=== PATIENT | male | born 1935 | race Two or more races ===

== ENCOUNTER 2024-10-01 12:23 | Inpatient (IN) | payer OTHER ==
[~2024-10-01] VITALS: Ht 175.3 cm; Wt 72.6 kg
[2024-10-01] MEDS ORDERED: MEMANTINE HCL E28 MG (13:02)
[2024-10-01] MEDS ORDERED: COZAAR50 MG (13:02)
[2024-10-01] MEDS ORDERED: RILUTEK50 MG (13:02)
[2024-10-01] MEDS ORDERED: GALANTAMINE HBR24 MG (13:03)
--- NOTE | 2024-10-01 13:03 | NUR ---
SE RECIBE PACIENTE ALERTA Y ORIENTADO X3 ACOMPANADO DE PERSONAL DE AMBULANCIA Y ESPOSA QUIEN REFIERE PACIENTE OG PRESENTADO DIFICULTAD RESPIRATORIA EN NG HOGAR DESDE HACE VARIAS SEMANAS. PACIENTE CON DX DE ALS, ALZHEIMER Y APNEA DEL SUENO. AL MOMENTO DE TRIAGE PACIENTE CON BUEN PATRON RESPIRATORIO, [place] EN ORACIONES COMPLETAS, SATURANDO 96%
[2024-10-01] MEDS ORDERED: GUAIFEN/DEXTROMETHORPHAN/PE 10 ML BLIST.PACK PO ONE ×2 (15:45)
[2024-10-01 16:06] LABS: HEMATOCRIT 47.9 % (39.0-48.0); HEMOGLOBIN 15.8 g/dL (13-16.00); MEAN CELL VOLUME 93.5 fL (80.0-100.00); MEAN CORPUSCULAR HEMOGLOBIN 30.8 pg (27.00-32.0); MEAN CORPUSCULAR HGB CONC 32.9 g/dl (32.0-36.0); PLATELET COUNT 237 K/uL (150-450); RED BLOOD COUNT 5.12 M/uL (4.00-6.00); RED CELL DISTRIBUTION WIDTH 13.4 % (11.5-14.5)
--- NOTE | 2024-10-01 16:07 | NUR ---
SE ORIENTA A PACIENTE SOBRE TRATAMIENTO MEDICO. SE COLECTAN MUESTRAS DE LABORATORIO Y SE CANALIZA A PACIENTE BAJO MEDIDAS ASEPTICAS. SE ADMINISTRA MEDICAMENTO KENNY ORDEN MEDICA. PENDIENTE REALIZAR X-RAY.
[2024-10-01 16:39] LABS: PARTIAL THROMBOPLASTIN TIME 24.9 SECONDS (22.0-34.0); PROTHROMBIN TIME 10.9 SECONDS (9.0-11.5)
[2024-10-01 16:43] LABS: ALBUMIN 4.3 gm/dL (3.4-5.0); BILIRUBIN TOTAL 0.97 mg/dL (0.3-1.2); CALCIUM 9.7 mg/dL (8.5-10.1); CREATININE SERUM 1.57 mg/dL (0.70-1.30); GFR 42.1; GLOBULINA 3.6 G/DL (2.4-3.5); POTASSIUM 3.69 mEq/L (3.5-5.1); TOTAL PROTEIN 7.9 gm/dL (6.4-8.2)
[2024-10-01] MEDS ORDERED: SODIUM CHLORIDE FOR INHALATION 1 VIAL.NEB IH SCH (18:28)
[2024-10-01] MEDS ORDERED: IPRATROPIUM BROMIDE 0.5 MG/2.5 ML AMPUL.NEB IH SCH ×2 (18:28→21:00)
[2024-10-01] MEDS ORDERED: 0.9 % SODIUM CHLORIDE 1,000 ML IV SCH ×2 (18:30→19:45)
[2024-10-01] MEDS ORDERED: FAMOTIDINE/PF 20 MG in 0.9 % SODIUM CHLORIDE 8 ML IV PUSH ONE (18:45)
[2024-10-01] MEDS ORDERED: SODIUM CHLORIDE FOR INHALATION 1 VIAL.NEB IH ONE (20:18)
[2024-10-01] MEDS ORDERED: LEVALBUTEROL HCL 0.63 MG/3 ML SOLUTION IH ONE (20:18)
[2024-10-01] MEDS ORDERED: IPRATROPIUM BROMIDE 0.5 MG/2.5 ML AMPUL.NEB IH ONE (20:18)
[2024-10-01] MEDS ORDERED: GUAIFENESIN 600 MG TABLET.SA PO SCH (21:00)
[2024-10-01] MEDS ORDERED: LEVALBUTEROL HCL 0.63 MG/3 ML SOLUTION IH SCH (21:00)
[2024-10-01 21:44] LABS: ABG PH 7.398 (7.35-7.45)
[2024-10-01 21:45] LABS: ABG PO2 76.9 mmHg (80-100); ABG pCO2 46.2 mmHg (35-45); BASE EXCESS 2.4 mmol/l; BICARBONATE 27.8 mmol/l (23-25); SaO2 95.3 %; Tco2 29.3 mmol/l; allen test SATISFACTORY; o2 21 %; puncture site RADIAL LEFT
[2024-10-01] MEDS ORDERED: FAMOTIDINE/PF 20 MG/2 ML VIAL ONE (22:01)
[2024-10-01 22:07] LABS: INR 1.03; PARTIAL THROMBOPLASTIN TIME 25.3 SECONDS (22.0-34.0); PROTHROMBIN TIME 11.2 SECONDS (9.0-11.5)
[2024-10-02] VITALS (9 sets, daily range): BP systolic 138–173; BP diastolic 75–90; O2SAT 90–99
[2024-10-02 01:38] LABS: PH,URINE 5.5 (5.0-8.0); URINE APPEARANCE Clear; URINE BILIRRUBIN Negative (NEGATIVE); URINE BLOOD Negative; URINE COLOR Yellow; URINE GLUCOSE Negative (NEGATIVE); URINE KETONE Trace (NEGATIVE); URINE LEUKOCYTE Negative; URINE NITRATE Negative; URINE PROTEIN Trace (NEGATIVE); URINE UROBILINOGEN 0.2 E.U./dl
[2024-10-02 01:42] LABS: URINE RBC 6.4 uL (0.0-20.8)
[2024-10-02 01:44] LABS: URINE BACTERIA 3.6 uL (0.0-1933); URINE CAST 0.14 uL (0.0-1.40); URINE EPITHELIAL CELLS 0.3 uL (0.0-38.8); URINE WBC 1.5 uL (0.0-23.2)
[2024-10-02] MEDS ORDERED: ENOXAPARIN SODIUM 40 MG/0.4 ML SYRINGE SUBCUTANEO SCH (09:00)
[2024-10-02] MEDS ORDERED: LOSARTAN POTASSIUM 50 MG TABLET PO SCH (09:00)
[2024-10-02] MEDS ORDERED: PATIENTS OWN MEDICATION (MEDICAMENTO EN PISO) PO SCH ×3 (09:00→21:00)
[2024-10-03 01:56] VITALS: O2SAT 99
[2024-10-03 02:54] VITALS: BP 131/58
[2024-10-03 07:20] LABS: ALBUMIN 3.7 gm/dL (3.4-5.0); BILIRUBIN TOTAL 1.02 mg/dL (0.3-1.2); CALCIUM 9.1 mg/dL (8.5-10.1); CREATININE SERUM 1.41 mg/dL (0.70-1.30); GFR 47.66; GLOBULINA 2.9 G/DL (2.4-3.5); POTASSIUM 3.58 mEq/L (3.5-5.1); TOTAL PROTEIN 6.6 gm/dL (6.4-8.2)
[2024-10-03 07:25] VITALS: BP 122/65
[2024-10-03 18:21] VITALS: BP 152/101
== END 2024-10-03 19:47 | disposition left against medical advice (07) | DRG 682 ==
LOC: ER 12:23 → MEDJ 19:59
PROVIDERS: Emergency Medicine; General Practice; Internal Medicine; ADMIT Internal Medicine; ATTEND Internal Medicine
PROC: BT43ZZZ Ultrasonography of Bilateral Kidneys (ICD-10-PCS; 2024-10-01)
PROC: 3E0F7GC Introduction of Other Therapeutic Substance into Respiratory Tract, Via Natural or Artificial Opening (ICD-10-PCS; 2024-10-01)
PROC: 4A12X4Z Monitoring of Cardiac Electrical Activity, External Approach (ICD-10-PCS; principal; 2024-10-02)
PROC: BB24ZZZ Computerized Tomography (CT Scan) of Bilateral Lungs (ICD-10-PCS; 2024-10-02)
DX: N17.9 Acute kidney failure, unspecified (principal); J96.01 Acute respiratory failure with hypoxia; G12.21 Amyotrophic lateral sclerosis; R63.0 Anorexia; G47.33 Obstructive sleep apnea (adult) (pediatric); Z87.891 Personal history of nicotine dependence